=== PATIENT | male | born 1955 | race Two or more races ===

== ENCOUNTER 2018-07-31 16:41 | Emergency (ER) | payer SELFPAY ==
[~2018-07-31] VITALS: Ht 182.9 cm; Wt 85.0 kg
[2018-07-31 16:44] VITALS: BP 158/90
== END 2018-07-31 17:42 | disposition left against medical advice (07) ==
LOC: ER 16:41
DX: Z53.21 Procedure and treatment not carried out due to patient leaving prior to being seen by health care provider (principal)